=== PATIENT | male | born 1970 | race Caucasian/White ===

== ENCOUNTER 2019-02-11 20:09 | Emergency (ER) | payer MEDICAID ==
[~2019-02-11] VITALS: Ht 180.3 cm; Wt 77.3 kg
[~2019-02-11 20:09] MED LIST: LISI10TA4 PO; NORCO10T PO; PANT40TA39 PO; ZOLP10TA5 PO
[2019-02-11 20:44] LABS: GLUCOSE 109 MG/DL (70-104); SODIUM 134 MMOL/L (135-145)
[2019-02-11 20:45] LABS: ALANINE AMINOTRANSFERASE 47 U/L (12-78); ALBUMIN 4.6 G/DL (3.4-5.0); ALBUMIN/GLOBULIN RATIO 1.2 (1.1-1.5); ANION GAP 11 (8-16); ASPARTATE AMINO TRANSFERASE 43 U/L (10-37); BILIRUBIN,TOTAL 1.1 MG/DL (0.1-1.0); BLOOD UREA NITROGEN 18 MG/DL (7-18); BUN/CREATININE RATIO 15.4 (5.4-32.0); CALCIUM 9.5 MG/DL (8.5-10.1); CHLORIDE 97 MMOL/L (99-107); CREATININE 1.17 MG/DL (0.60-1.10); POTASSIUM 3.4 MMOL/L (3.5-5.1); TOTAL CARBON DIOXIDE 25.8 MMOL/L (24-32); TOTAL PROTEIN 8.4 G/DL (6.4-8.2); eGFR 66 ML/MIN
[2019-02-11 20:46] LABS: ALKALINE PHOSPHATASE 73 IU/L (46-116); LIPASE 108 U/L (73-393)
[2019-02-11 20:47] LABS: HEMATOCRIT 39.1 % (42.0-52.0); HEMOGLOBIN 12.8 g/dl (14.0-17.9); MEAN CORPUSCULAR HEMOGLOBIN 25.9 PG (27.0-31.0); MEAN CORPUSCULAR HGB CONC 32.9 g/dL (33.0-36.5); MEAN CORPUSCULAR VOLUME 78.9 FL (78-98); PLATELET COUNT 149 X10'3 (140-440); RED BLOOD COUNT 4.95 X10'6 (4.70-6.10); RED CELL DISTRIBUTION WIDTH 19.4 % (11.5-14.5); WHITE BLOOD COUNT 6.1 X10'3 (4.5-11.0)
[2019-02-11 20:48] LABS: BASOPHILS % (AUTO) 0.1 % (0-1); EOSINOPHILS % (AUTO) 0.1 % (0-6); LYMPHOCYTES # (AUTO) 0.7 X10'3 (1.1-4.8); MEAN PLATELET VOLUME 8.6 FL (7.4-10.4); MONOCYTES # (AUTO) 0.6 X10'3 (0-0.9); MONOCYTES % (AUTO) 9.1 % (2-12); NEUTROPHILS # (AUTO) 4.9 X10'3 (1.8-7.7); NEUTROPHILS % (AUTO) 79.7 % (42-75)
[2019-02-11 20:55] LABS: CLARITY,URINE CLOUDY (Clear); COLOR,URINE YELLOW (Yellow); GLUCOSE, URINE 100 mg/dl (Neg); KETONES,URINE TRACE mg/dl (Neg); LEUKOCYTE ESTERASE ,URINE TRACE (Neg); OCCULT BLOOD,URINE NEGATIVE (Neg); PROTEIN,URINE 100 mg/dl (Neg)
[2019-02-11 21:03] LABS: NITRITES, URINE NEGATIVE (Neg); UA COLLECTION TYPE URINAL
[2019-02-11 21:10] LABS: BACTERIA,URINE FEW /HPF (Neg); CAL OXALATE CRYSTALS FEW /HPF (NEGATIVE); RBC,URINE NONE SEEN /HPF (0-2); SQUAMOUS EPITHELIAL CELL,UR FEW /LPF (FEW)
[2019-02-11] MEDS ORDERED: POLY17PO10 PO (21:19)
[2019-02-11] MEDS ORDERED: ONDA8TAB6 PO (21:19)
[2019-02-11] MEDS ORDERED: BISA-155 PO (21:19)
[2019-02-11] MEDS ORDERED: ondansetron/PF 4mg/2ml inj IV ONE (21:20)
[2019-02-11] MEDS ORDERED: normal saline 1000ml 1,000 ML IV ONE (21:20)
[2019-02-11] MEDS ORDERED: ketorolac trometh. 30mg/ml inj. IV ONE (21:20)
[2019-02-11 21:25] LABS: ANISOCYTOSIS 2+; ELLIPTOCYTES FEW; LARGE PLATELETS FEW; MICROCYTOSIS 1+; PLATELET ESTIMATE NORMAL; POLYCHROMASIA FEW; TEAR DROP CELLS FEW
[2019-02-11 21:56] VITALS: BP 123/88
== END 2019-02-11 22:13 | disposition home or self-care (01) ==
LOC: ER 20:09
DX: K29.70 Gastritis, unspecified, without bleeding (principal); K59.00 Constipation, unspecified; K21.9 Gastro-esophageal reflux disease without esophagitis; F12.90 Cannabis use, unspecified, uncomplicated; F15.90 Other stimulant use, unspecified, uncomplicated; Z86.19 Personal history of other infectious and parasitic diseases; Z90.49 Acquired absence of other specified parts of digestive tract; Z56.0 Unemployment, unspecified; Z79.899 Other long term (current) drug therapy
CPT/HCPCS: 36415; 80053; 81001; 83690; 85025; 87088; 96374; 96375; 99284; J1885; J2405; J7030

== ENCOUNTER 2024-10-26 11:26 | Outpatient (CLI) | payer MEDICAID ==
[~2024-10-26 11:26] MED LIST changes: +BISA-155 PO; +LISI10TA27 PO; -LISI10TA4 PO; +ONDA8TAB6 PO
--- NOTE | 2024-10-26 13:13 | RADIOLOGY REPORT ---
INDICATION: ELEVATION OF LEVELS OF LIVER TRANSAMINASE LEVELS TECHNIQUE: Multiple real-time sonographic images of the abdomen were obtained. COMPARISON: None FINDINGS: The liver is heterogeneous in echogenicity. The liver measures 17cm. No intrahepatic bilia ry ductal dilatation is noted. Hepatic cirrhosis. Gallbladder surgically removed. Common bile duct measures 6 mm The right kidney measures 11cm. No hydronephrosis. The pancreas is not well visualized due to obscuration from bowel gas. The visualized portions of the IVC and aorta are grossly unremarkable. IMPRESSION: Hepatic cirrhosis.
== END 2024-10-26 23:59 | disposition home or self-care (01) ==
LOC: RAD 11:26
PROVIDERS: ATTEND Family Medicine
DX: K74.60 Unspecified cirrhosis of liver (principal); R74.01 Elevation of levels of liver transaminase levels
CPT/HCPCS: 76700